=== PATIENT | male | born 1970 | race Caucasian/White ===

== ENCOUNTER → 2020-01-05 10:05 | Outpatient (CLI) | payer OTHER, SELFPAY ==
--- NOTE | ~2020-01-05 | XR_ITS ---
EXAMINATION: XR hand RT min 3V DATE: 01/05/2020 11:02 INDICATION: Right hand pain TECHNIQUE: Posteroanterior, oblique and lateral views of the right hand were obtained. COMPARISON: None. FINDINGS: Alignment is normal. No fracture. Mild polyarticular osteoarthritis with minimal joint space narrowin g and tiny marginal osteophytes at the first interphalangeal and fourth and fifth distal interphalang eal joints. No cortical erosions to suggest an inflammatory arthritis. Soft tissues are unremarkable. IMPRESSION: 1. Mild polyarticular osteoarthritis at a few of the interphalangeal joints. Reviewed, dictated and finalized at location A.
== END ==
PROVIDERS: PCP Family Medicine; Visit Provider Family Medicine
DX: M19.041 Primary osteoarthritis, right hand (principal)
CPT/HCPCS: 73130

== ENCOUNTER → 2020-10-01 12:34 | Outpatient (CLI) | payer OTHER, SELFPAY ==
--- NOTE | ~2020-10-01 | XR_ITS ---
XR lumbar spine 2-3V DATE: 10/01/2020 14:12 INDICATION: Back pain TECHNIQUE: Standing AP, lateral and coned lateral lumbosacral views COMPARISON: None FINDINGS: Status post anterior spinal fusion at L4-5, with apparent fusion across the L4-5 disc space . Mild anterior spurring at L2-3. The lumbar and lumbosacral interspaces otherwise appear well preserve d. No fracture or bone destruction is evident. The lumbar pedicles are intact. The sacroiliac joints appear normal. IMPRESSION: Status post anterior surgical fusion at L4-5 Reviewed, dictated and finalized at location A.
--- NOTE | ~2020-10-01 | XR_ITS ---
XR thoracic spine 3V DATE: 10/01/2020 14:12 INDICATION: Back pain TECHNIQUE: Standing AP, lateral and swimmer views COMPARISON: None FINDINGS: No fracture or dislocation is detected. The thoracic pedicles are intact. There is no wes monty soft tissue thickening. IMPRESSION: No significant abnormality Reviewed, dictated and finalized at location A. IMPRESSION: No significant abnormality
--- NOTE | ~2020-10-01 | XR_ITS ---
XR_CERV2-3V_CR DATE: 10/01/2020 14:12 INDICATION: Neck pain TECHNIQUE: Standing AP, lateral, open-mouth, odontoid views COMPARISON: None FINDINGS: There is reversal of cervical curvature. There is mild dextroscoliosis of the cervical spin e. C1 and C2 are normally aligned and the odontoid process is intact. No fracture or dislocation or lock ed facet or prevertebral soft tissue swelling. There is moderately prominent degenerative disc disease at C5-6 and moderately severe degenerative di sc disease at C6-7. IMPRESSION: Reversal cervical curvature and mild dextro scoliosis Moderate degenerative disc disease at C5-6 Moderately severe degenerative disc disease at C6-7 Reviewed, dictated and finalized at Location A. Reviewed, dictated and finalized at location A.
== END ==
PROVIDERS: Visit Provider Physician Assistant
DX: M50.322 Other cervical disc degeneration at C5-C6 level (principal); M50.323 Other cervical disc degeneration at C6-C7 level; Z98.1 Arthrodesis status
CPT/HCPCS: 72040; 72072; 72100

== ENCOUNTER 2020-10-02 06:26 | Emergency (ER) | payer OTHER, SELFPAY ==
[2020-10-02] VITALS (7 sets, daily range): BP systolic 127–163; BP diastolic 88–106; PULSE 60–78; RESP 16–21; TEMP 36.4; O2SAT 97–98
--- NOTE | ~2020-10-02 | XR_ITS ---
EXAMINATION: XR chest 2V DATE: 10/02/2020 07:01 INDICATION: Cardiac palpitations TECHNIQUE: frontal and lateral views of the chest were obtained. COMPARISON: Chest radiograph dated 02/19/19 FINDINGS: The lungs remain clear with no focal airspace opacities, pulmonary edema, pleural effusion or pneumot horax. The cardiomediastinal silhouette is normal. Visualized bones and soft tissues are unremarkable . IMPRESSION: 1. No acute cardiopulmonary disease. Reviewed, dictated and finalized at location A.
--- NOTE | 2020-10-02 06:34 | ECG_ITS ---
Measurements Intervals [place] Rate: 66 P: 55 ME: 157 QRS: 18 QRSD: 106 T: 51 QT: 395 QTc: 414 Interpretive Statements SINUS RHYTHM BASELINE ARTIFACT- I, II, III, AVR, AVL, AVF, V3-V6 NORMAL ECG Electronically Signed On 10-02-2020 6:43:25 CDT by Poli Valverde D.O.
[2020-10-02 07:02] LABS: Basophils Percent Auto 0.3 % (0.2-1.2); Eosinophils Absolute Auto 0.1 K/mm3 (0-0.3); Eosinophils Percent Auto 0.6 % (0-4.4); Hematocrit 43.4 % (42.0-52.0); Hemoglobin 14.5 g/dL (14.0-18.0); Immature Granulocyte Percent A 0.8 % (0-0.5); Lymphocytes Absolute Auto 2.22 K/mm3 (0.9-3.2); Lymphocytes Percent Auto 18.8 % (18.3-44.2); Mean Corpuscular HGB Conc 33.4 g/dl (32-36); Mean Corpuscular Hemoglobin 29.2 pg (26-34); Mean Corpuscular Volume 87.3 fl (80-100); Mean Platelet Volume 10.4 fl (7.4-10.4); Monocytes Absolute Auto 0.6 K/mm3 (0.1-0.6); Monocytes Percent Auto 5.3 % (2.6-8.5); Neutrophils Absolute Auto 8.8 K/mm3 (1.3-6.7); Neutrophils Percent Auto 74.2 % (45.5-73.1); Platelet Count Result 271 k/mm3 (150-375); Red Blood Count 4.97 M/mm3 (4.6-6.20); Red Cell Distribution Width 13.4 % (11.5-14.5); White Blood Count 11.8 K/mm3 (4.5-10.0)
[2020-10-02 07:11] LABS: Prothrombin Time 12.9 Seconds (11.1-14.7)
[2020-10-02 07:12] LABS: Partial Thromboplastin Time 24.7 SECONDS (22.3-36.8)
[2020-10-02 07:13] LABS: Anion Gap 10 mmol/L (8-16); Blood Urea Nitrogen 14 mg/dL (9-20); Calcium 9.1 mg/dL (8.4-10.2); Carbon Dioxide 22 mmol/L (22-30); Chloride 104 mmol/L (98-107); Estimated CRCL calculation 115 ml/min; Estimated Glomerular Filt Rate > 60; Glucose 115 mg/dL (65-110); Potassium 3.5 mmol/L (3.4-5.0); Sodium 136 mmol/L (137-145)
[2020-10-02 07:23] LABS: Troponin I < 0.012 ng/mL (0.000-0.034)
--- NOTE | 2020-10-02 07:38 | ED.ARRPALP ---
HPI - Arrhythmia/Palpitations General Chief Complaint: Arrhythmia/Palpitations Stated Complaint: palpitations Time Seen by Provider: 10/02/20 07:11 History of Present Illness HPI narrative: 50 yo male presents to the ED for heart palpitations. He reports that he was awoken from sleep by his heart pounding. He took his pulse and found that it was labile, ranging from 45-110. He also notes being warm and dizzy. This was also associated with a strange feeling in his chest. He has never had thee symptoms before. Since arrival in the ED he is feeling better, but says that he still feels off. No chest pain, SOB, syncope, fever. Related Data Home Medications Medication Instructions Recorded Confirmed omeprazole 20 mg PO DAILY 02/19/19 09/20/20 cetirizine 10 mg PO PRN 10/02/20 cyclobenzaprine 10 mg PO PRN 10/02/20 multivit with min-folic acid tablet PO 10/02/20 [Adult One Daily Multivitamin] Allergies Allergy/AdvReac Type Severity Reaction Status Date / Time codeine AdvReac Mild SLOW HEART Verified 10/02/20 06:44 RATE Review of Systems Review of Systems: All systems reviewed & are unremarkable except as noted in HPI and below Constitutional: Constitutional: Denies fever(s) and Denies weakness Eyes: Eyes: Reports no additional eye complaints ENT: Reports dizziness Cardiovascular: Cardiovascular: Denies chest pain Respiratory: Respiratory: Denies dyspnea Gastrointestinal: Gastrointestinal: Denies abdominal pain and Denies vomiting Genitourinary: Genitourinary: Reports no additional male genitourinary complaints Neurologic: Denies syncope and Denies weakness [facility] Past Medical History Medical History Cluster headache, chronic COVID-19 Oropeza syndrome Surgical History Surgical History Hx of tonsillectomy S/P laminectomy Family History Family History Father Hypertension Grandparent Hypertension Family history of malignant neoplasm Mother Hypertension Other No family history of cardiovascular disease Social History Social History Smoking status: Former smoker Tobacco type: cigarettes and e-cigarettes/vaping Alcohol intake: current Gender identity (if verbalized by the patient): Male Exam Const: General: healthy appearing, no acute distress and alert Orientation/consciousness: patient oriented x3 HENMT: Head: normal to inspection Neck: Neck: normal visual inspection and no lymphadenopathy Resp: Effort & Inspection: normal respiratory effort Auscultation: clear to auscultation bilaterally, no rales, no rhonchi and no wheezes Cardio: Jugular venous distension: no JVD Rate: regular rate Rhythm: regular rhythm Heart sounds: no murmurs GI: GI Palp: Yes Soft to palpation and No Tenderness to palpation present (GI) Skin: General skin exam: normal color Neuro: General: patient oriented x3, moves all extremities and CN's II-XI intact bilaterally Speech: normal speech Gait exam (Neuro): Normal gait present Extrem: General: no edema Psych: Appearance: well kempt Affect: Anxious affect present Course Vital Signs Vital signs: Vital Signs Temperature 36.4 C 10/02/20 06:38 Pulse Rate 70 10/02/20 06:38 Respiratory Rate 16 10/02/20 06:38 Blood Pressure 163/97 H 10/02/20 06:38 Pulse Oximetry 97 10/02/20 06:38 Temperature 36.4 C 10/02/20 06:38 Pulse Rate 60 10/02/20 10:38 Respiratory Rate 17 10/02/20 10:38 Blood Pressure 140/88 10/02/20 10:38 Pulse Oximetry 97 10/02/20 10:38 MDM - Arrhythmia/Palpitations Differential Diagnosis Differential diagnosis: Likely palpitations, anxiety, sinus tachycardia, artial fibrillation, artial flutter, ventricular premature beats, supraventricular tachycardia and other Medi
[2020-10-02 10:05] LABS: Troponin I < 0.012 ng/mL (0.000-0.034)
== END 2020-10-02 10:52 | disposition home or self-care (01) ==
PROVIDERS: Emergency Medicine; Emergency Provider Emergency Medicine; PCP Family Medicine
DX: R00.2 Palpitations (principal); Z86.16 Personal history of COVID-19; D69.41 Evans syndrome; Z87.891 Personal history of nicotine dependence
CPT/HCPCS: 36415; 71046; 80048; 84484; 85025; 85610; 85730; 93005; 99284

== ENCOUNTER 2021-06-07 01:07 | Emergency (ER) | payer OTHER, SELFPAY ==
[2021-06-07 01:16] VITALS: BP 160/87; PULSE 80; RESP 18; TEMP 36.2; O2SAT 98
--- NOTE | 2021-06-07 01:45 | ED.WOUNDLAC ---
HPI - Wound/Laceration General Chief Complaint: Wound/Laceration Stated Complaint: right side tongue pain Time Seen by Provider: 06/07/21 01:23 Source: patient Mode of arrival: ambulatory Limitations: no limitations History of Present Illness HPI narrative: Patient is a 51-year-old male who presents the ED with report of right posterior tongue pain. Patient reports he noticed discomfort in his right posterior tongue around 11 PM last night. He states he looked in the mirror and what he saw on his tongue horrified him, thus prompting his presentation to the ED. Patient denies any sore throat, fever, chills, chest pain, shortness of breath, nausea, vomiting, cough, congestion. He does mention he takes omeprazole 20 mg daily for his GERD and has had increased acid reflux symptoms lately. He is unsure if his reflux symptoms are related to his tongue pain tonight. Related Data Home Medications Medication Instructions Recorded Confirmed omeprazole 20 mg PO DAILY 02/19/19 10/10/20 cetirizine 10 mg PO PRN 10/02/20 10/10/20 cyclobenzaprine 10 mg PO PRN 10/02/20 10/10/20 multivit with min-folic acid tablet PO 10/02/20 10/10/20 [Adult One Daily Multivitamin] Allergies Allergy/AdvReac Type Severity Reaction Status Date / Time codeine AdvReac Mild SLOW HEART Verified 06/07/21 01:40 RATE Review of Systems Review of Systems: CONSTITUTIONAL: Denies fever, chills, or sweats. ENT: Reports right posterior tongue pain, acid reflux. Denies congestion, sore throat. CARDIOVASCULAR: Denies chest pain. RESPIRATORY: Denies dyspnea. GASTROINTESTINAL: Denies abdominal pain, nausea, vomiting. All systems reviewed & are unremarkable except as noted in HPI and below PMFSH Past Medical History Medical History (Updated 06/07/21 @ 02:42 by Sonja Hart PA-C) Cluster headache, chronic COVID-19 Oropeza syndrome GERD (gastroesophageal reflux disease) Surgical History Surgical History Hx of tonsillectomy S/P laminectomy Family History Family History Father Hypertension Grandparent Hypertension Family history of malignant neoplasm Mother Hypertension Other No family history of cardiovascular disease Social History Social History Tobacco type: cigarettes and e-cigarettes/vaping Alcohol intake: current Gender identity (if verbalized by the patient): Male Exam Narrative: GENERAL: Well appearing, well-nourished, non-toxic, in no acute distress. HEAD: Normocephalic, atraumatic. NOSE: Normal, no drainage. THROAT: Pharynx clear, no exudate. No erythema. MMs moist. Mildly enlarged papilla of posterior tongue. One papilla does appear slightly pedunculated in R posterior tongue. No signs of leukoplakia or thrush. NECK: Supple. No adenopathy, no masses. RESPIRATORY: Airway patent, respirations nonlabored. Clear to auscultation bilaterally, no rales, rhonchi, wheezing. CARDIOVASCULAR: Regular rate and rhythm without murmurs, rubs, or gallops. MUSCULOSKELETAL: Moves all extremities. SKIN: Warm, dry, normal color. No rashes. NEURO: A&O X3. Speech clear. Cranial nerves II-XII grossly intact. Steady gait. No ataxic movements. PSYCHIATRIC: Appropriate mood and affect. Normal interaction. Course Vital Signs Vital signs: Vital Signs Temperature 97.2 F L 06/07/21 01:16 Pulse Rate 80 06/07/21 01:16 Respiratory Rate 18 06/07/21 01:16 Blood Pressure 160/87 H 06/07/21 01:16 Pulse Oximetry 98 06/07/21 01:16 Temperature 97.2 F L 06/07/21 01:16 Pulse Rate 80 06/07/21 01:16 Respiratory Rate 18 06/07/21 01:16 Blood Pressure 160/87 H 06/07/21 01:16 Pulse Oximetry 98 06/07/21 01:16 MDM - Wound/Laceration MDM Narrative Medical decision making narrative: Patient presented to ED with report of right posterior tongue pain and aci
--- NOTE | 2021-06-07 02:01 | ECG_ITS ---
Measurements Intervals [place] Rate: 62 P: 22 IN: 140 QRS: 33 QRSD: 100 T: 37 QT: 398 QTc: 404 Interpretive Statements SINUS RHYTHM NORMAL ECG COMPARED TO ECG 10/02/2020 06:38:30 NO SIGNIFICANT CHANGES Electronically Signed On 06-07-2021 16:17:10 CDT by Michael Weeks M.D.
[2021-06-07] MEDS: BELLADONNA ALK/PHENOB ELIX 10 ML, MAG HYDROX/ALUMINUM HYD/SIMETH 30 ML, LIDOCAINE HCL 2... PO (02:25)
[2021-06-07 02:36] VITALS: RESP 18
== END 2021-06-07 02:37 | disposition home or self-care (01) ==
PROVIDERS: Emergency Provider Emergency Medicine; PCP Family Medicine
DX: K14.3 Hypertrophy of tongue papillae (principal); K21.9 Gastro-esophageal reflux disease without esophagitis; Z86.16 Personal history of COVID-19; D69.41 Evans syndrome; F17.210 Nicotine dependence, cigarettes, uncomplicated; F17.290 Nicotine dependence, other tobacco product, uncomplicated
CPT/HCPCS: 93005; 99283; A9270

== ENCOUNTER → 2022-01-27 14:33 | Outpatient (CLI) | payer OTHER, SELFPAY ==
--- NOTE | ~2022-01-27 | CT_ITS ---
EXAMINATION: CT UE LT wo con DATE: 01/27/2022 15:13 INDICATION: Left cubital tunnel syndrome. Assess for lesion of the ulnar nerve at the left elbow. TECHNIQUE: High resolution computed tomography (CT) of the left elbow was performed without intraveno us contrast. Additional sagittal and coronal reconstructions were performed. Automated exposure contr ol and iterative reconstruction technique were employed. The dose-length product was 117.84 mGy-cm. COMPARISON: None FINDINGS: Bone alignment is normal. No fracture. Mild osteoarthritis at the left elbow with mild nonuniform roscoe nt space narrowing and tiny marginal osteophytes at the ulnotrochlear and proximal radioulnar articul ations. Small likely degenerative loose body at the posterior recess of the joint space at the olecra non fossa. No left elbow joint effusion. There is a normal course and caliber of the ulnar nerve at t he cubital tunnel as well as both proximally and distally. The cubital tunnel appears unremarkable wi th no and 20 separate trochlear is muscle. There is small amount of fat surrounding the nerve through out its course with no evident impinging osteophytes, masses or fluid collections. There is a nonspec ific small region of focal subtle airspace edema posteriorly at the slightly proximal to the proximal tip of the olecranon. No evident fatty muscular atrophy of the visualized muscles in the distal uppe r arm or proximal forearm. IMPRESSION: 1. Normal course and caliber of the ulnar nerve with no evident impinging osteophytes, masses or flui d collections. Reviewed, dictated and finalized at location B. ROLLER IMPRESSION: 1. Normal course and caliber of the ulnar nerve with no evident impinging osteo phytes, masses or fluid collections.
== END ==
PROVIDERS: PCP Emergency Medicine; Visit Provider Emergency Medicine
DX: R22.32 Localized swelling, mass and lump, left upper limb (principal)
CPT/HCPCS: 73200

== ENCOUNTER 2022-03-24 10:58 | Day surgery (SDC) | payer OTHER, SELFPAY ==
[2022-02-25 09:58] VITALS: BMI 37.4
[2022-03-04 09:49] VITALS: BMI 37.5
--- NOTE | 2022-03-21 08:42 | P.PNAN_ITS ---
Anes - Initial Pre Proc Eval Procedure: Operation Date: 03/24/22 13:00 Proposed Procedures p Screening Colonoscopy - Kwadwo Del Castillo MD Date/Time: 03/21/22 08:42 Surgeon: Kwadwo Del Castillo MD Pre Op Diagnosis: family history of colon polyp Patient Data Age: 51 Gender: M Height: 1.73 m Weight: 112 kg Allergies Allergy/AdvReac Type Severity Reaction Status Date / Time codeine AdvReac Mild SLOW HEART Verified 03/24/22 12:06 RATE Home Medications Medication Instructions Recorded Confirmed Type omeprazole 20 mg tablet,delayed 20 mg PO DAILY 02/19/19 03/04/22 History release multivitamin with minerals-folic 1 tablet PO DAILY 10/02/20 03/04/22 History acid 0.4 mg tablet (Adult One Daily Multivitamin) topiramate 100 mg tablet See Rx Instructions .Route 09/09/21 03/04/22 Rx .COMPLEX #180 tabs zolmitriptan 5 mg nasal spray 1 spray intranasal Q2H PRN 01/14/22 03/04/22 Rx headache #6 ea sodium,potassium,mag sulfates 17.5 See Rx Instructions PO .COMPLEX 02/25/22 03/04/22 Rx gram-3.13 gram-1.6 gram oral soln #354 mL (Suprep Bowel Prep Kit) lisinopril 20 mg tablet 20 mg PO DAILY #90 tabs 03/13/22 03/24/22 Rx Patient hx anesthesia problems: none Family hx anesthesia problems: none Results Review: All pre-operative results and documents have been reviewed as part of the pre- operative evaluation. [facility] Past Medical History Medical History (Updated 03/24/22 @ 12:12 by Kwadwo Del Castillo MD) Cluster headache, chronic COVID-19 Oropeza syndrome GERD (gastroesophageal reflux disease) Hypertension Surgical History Surgical History Hx of tonsillectomy S/P laminectomy Family History Family History Father Hypertension Grandparent Hypertension Family history of malignant neoplasm Mother Hypertension Other No family history of cardiovascular disease Social History Social History Smoking status: Never smoker Tobacco type: cigarettes and e-cigarettes/vaping Alcohol intake: never Substance use: never Substance use type: does not use Living arrangements: alone Gender identity (if verbalized by the patient): Male Spiritual care concerns: No Anes - Eval Final PreProcedure Day of Procedure 03/21/22 08:42 Patient weight: obese Heart: regular rate and rhythm Lungs: clear to auscultation Airway: Mallampati scale class II Neurological: alert and oriented Last oral intake: >/= 8 hours ASA classification: III Emergent: no Anesthetic plan: proceed Anesthesia type and monitoring: general GIVS and standard monitoring Results Review: All pre-operative results and documents have been reviewed as part of the pre- operative evaluation. Informed Consent: The patient's anesthetic plan and its attendant risks and benefits were discussed with the patient/family/POA. Questions were solicited and answers provided to the satisfaction of the patient/family/POA.
[2022-03-24 12:10] VITALS: BP 108/79; PULSE 63; RESP 20; TEMP 36.9; O2SAT 99
--- NOTE | 2022-03-24 12:11 | PM.HPGS ---
History of Present Illness History of Present Illness Consent: Risks, benefits, and alternatives have been discussed and questions answered. Patient agrees to proceed with procedure. Chief complaint: family history of colon polyp Narrative: Jarocho Velarde is a 52 year old male Presents for screening colonoscopy. He has never had a colonoscopy before his father had colon polyps however. Patient states that his current weight appetite bowel movements are normal. He presents today for screening colonoscopy. Review of Systems Review of Systems: Review of systems noncontributory. [facility] Past Medical History Medical History (Updated 03/24/22 @ 12:12 by Kwadwo Del Castillo MD) Cluster headache, chronic COVID-19 Oropeza syndrome GERD (gastroesophageal reflux disease) Hypertension Surgical History Surgical History Hx of tonsillectomy S/P laminectomy Family History Family History Father Hypertension Grandparent Hypertension Family history of malignant neoplasm Mother Hypertension Other No family history of cardiovascular disease Social History Social History Smoking status: Never smoker Tobacco type: cigarettes and e-cigarettes/vaping Alcohol intake: never Substance use: never Substance use type: does not use Living arrangements: alone Gender identity (if verbalized by the patient): Male Spiritual care concerns: No Meds Home Medications and Allergies Home Medications Medication Instructions Recorded Confirmed Type omeprazole 20 mg tablet,delayed 20 mg PO DAILY 02/19/19 03/04/22 History release multivitamin with minerals-folic 1 tablet PO DAILY 10/02/20 03/04/22 History acid 0.4 mg tablet (Adult One Daily Multivitamin) topiramate 100 mg tablet See Rx Instructions .Route 09/09/21 03/04/22 Rx .COMPLEX #180 tabs zolmitriptan 5 mg nasal spray 1 spray intranasal Q2H PRN 01/14/22 03/04/22 Rx headache #6 ea sodium,potassium,mag sulfates 17.5 See Rx Instructions PO .COMPLEX 02/25/22 03/04/22 Rx gram-3.13 gram-1.6 gram oral soln #354 mL (Suprep Bowel Prep Kit) lisinopril 20 mg tablet 20 mg PO DAILY #90 tabs 03/13/22 03/24/22 Rx Allergies Allergy/AdvReac Type Severity Reaction Status Date / Time codeine AdvReac Mild SLOW HEART Verified 03/24/22 12:06 RATE Exam Narrative: Physical exam reveals patient to be alert. Vital signs stable. HEENT exam is unremarkable. Patient is anicteric. Lungs are clear to auscultation and percussion. Heart is without murmur or extra sounds. Abdomen bowel sounds are present soft nontender with no organomegaly. Digital external rectal exam is normal. Assessment and Plan Assessment and plan (1) Family history of colonic polyps: Code(s): Z83.71 - Family history of colonic polyps Status: Acute Assessment and Plan: Patient has a family history of colon polyps in his father. Screening colonoscopy to be performed today.
[2022-03-24] MEDS: LACTATED RINGERS 1,000 ML 150 ML IV CONT (12:25)
[2022-03-24] MEDS: SIMETHICONE ORAL SUSPENSION 20 MG/0.3 ML 30 ML BOTTLE 0.6 ML IRRIGATION (12:35)
[2022-03-24 12:42] VITALS: BP 92/62; PULSE 68; RESP 18; O2SAT 96
[2022-03-24 12:52] VITALS: BP 95/62; PULSE 80; RESP 18; O2SAT 99
[2022-03-24 13:02] VITALS: BP 106/73; PULSE 70; RESP 18; O2SAT 98
--- NOTE | 2022-03-24 13:02 | WPDANESPN ---
Anes - Prog Note Post-Op Date/Time: 03/24/22 13:02 Cardiovascular status: normal Respiratory status: normal Airway patency: baseline Mental status: baseline Post-Op hydration status: normal Vital Signs: Last Vital Signs Temp 36.9 C 03/24/22 12:10 Pulse 80 03/24/22 12:52 Resp 18 03/24/22 12:52 BP 95/62 L 03/24/22 12:52 Pulse Ox 99 03/24/22 12:52 O2 Del Method Room Air 03/24/22 12:52 Pain Score (VAS): 0 Post-procedural complaints: none Patient Feedback: Patient satisfied with anesthetic care. Other Findings: Patient vital signs back to baseline. Patient denies nausea and vomiting. Patient's pain under control. Patient OK for discharge.
== END 2022-03-24 13:26 | disposition home or self-care (01) ==
PROVIDERS: PCP Emergency Medicine; Visit Provider Internal Medicine Gastroenterology
PROC: 0DJD8ZZ Inspection of Lower Intestinal Tract, Via Natural or Artificial Opening Endoscopic (ICD-10-PCS; CPT 45378; principal; 2022-03-24 13:00)
DX: Z83.71 Family history of colonic polyps (principal)
CPT/HCPCS: 45378

== ENCOUNTER 2022-07-20 04:37 | Emergency (ER) | payer OTHER, SELFPAY ==
[2022-07-20 04:50] VITALS: BP 155/91; PULSE 82; RESP 18; TEMP 36.6; O2SAT 99
[2022-07-20] MEDS: DOXYCYCLINE HYCLATE 100 MG TABLET PO (05:37)
--- NOTE | 2022-07-20 05:51 | ED.GENADULT ---
HPI - General Adult General Chief complaint: Eye Problems Stated complaint: left eye swellin/redness Time Seen by Provider: 07/20/22 05:17 History of Present Illness HPI narrative: Patient 52-year-old gentleman who presents the emergency department with chief complaint of left eyelid swelling. The patient reports recently has been treated for a ear infection with last course of azithromycin. Patient reports that today he noticed that his eyelid started getting itchy and reported that it has become swollen. The patient denies change in vision denies conjunctivitis denies purulent drainage from the eye. Related Data Home Medications Medication Instructions Recorded Confirmed omeprazole 20 mg tablet,delayed 20 mg PO DAILY 02/19/19 07/14/22 release multivitamin with minerals-folic 1 tablet PO DAILY 10/02/20 07/14/22 acid 0.4 mg tablet (Adult One Daily Multivitamin) Allergies Allergy/AdvReac Type Severity Reaction Status Date / Time codeine AdvReac Mild SLOW HEART Verified 07/20/22 05:14 RATE Review of Systems Review of Systems: A 10 system review of systems was completed on the patient and is negative except for what is stated in the HPI. Nursing and ancillary documentation was reviewed. [facility] Past Medical History Medical History Cluster headache, chronic COVID-19 Orpoeza syndrome GERD (gastroesophageal reflux disease) Hypertension Surgical History Surgical History Hx of tonsillectomy S/P laminectomy Family History Family History Father Hypertension Grandparent Hypertension Family history of malignant neoplasm Mother Hypertension Other No family history of cardiovascular disease Social History Social History Smoking status: Former smoker Tobacco type: cigarettes and e-cigarettes/vaping Alcohol intake: never Substance use: never Substance use type: does not use Living arrangements: alone Gender identity (if verbalized by the patient): Male Spiritual care concerns: No Exam Narrative: GENERAL: Well-appearing, well-nourished, and in no acute distress. HEAD: Normocephalic, atraumatic. EYES: PERRLA and EOMI. no conjunctivitis, there is erythema and swelling of the left upper eyelid. There is no fluctuance there is no appreciable abscess. ENT: Nares clear, no rhinorrhea or epistaxis. Mucous membranes moist. NECK: Supple. CHEST: Clear to auscultation. No respiratory distress. HEART: Regular rate and rhythm. No murmur heard. Normal peripheral pulses. ABDOMEN: Soft, nontender, nondistended, normal active bowel sounds. EXTREMITIES: Normal range of motion. No edema. SKIN: Warm, dry, no rash. NEURO: No focal deficits. Alert and oriented x3. PSYCH: Normal mood and affect. Course Vital Signs Vital signs: Vital Signs Temperature 36.6 C 07/20/22 04:50 Pulse Rate 82 07/20/22 04:50 Respiratory Rate 18 07/20/22 04:50 Blood Pressure 155/91 H 07/20/22 04:50 Pulse Oximetry 99 07/20/22 04:50 Oxygen Delivery Room Air 07/20/22 04:50 Temperature 36.6 C 07/20/22 04:50 Pulse Rate 82 07/20/22 04:50 Respiratory Rate 18 07/20/22 04:50 Blood Pressure 155/91 H 07/20/22 04:50 Pulse Oximetry 99 07/20/22 04:50 Oxygen Delivery Room Air 07/20/22 04:50 Medical Decision Making [facility] Narrative Medical decision making narrative: Differential diagnosis includes cellulitis, localized allergic reaction, blepharitis. Patient will be started on doxycycline to cover for possible infectious source for blepharitis the patient was instructed to warm compresses to the eye Vital Signs Vital Signs: Vital Signs Temperature 36.6 C 07/20/22 04:50 Pulse Rate 82 07/20/22 04:50 Respiratory R
== END 2022-07-20 06:07 | disposition home or self-care (01) ==
PROVIDERS: Emergency Provider Emergency Medicine; PCP Emergency Medicine
DX: H01.004 Unspecified blepharitis left upper eyelid (principal); I10 Essential (primary) hypertension; K21.9 Gastro-esophageal reflux disease without esophagitis; Z86.16 Personal history of COVID-19; Z87.891 Personal history of nicotine dependence
CPT/HCPCS: 99283; A9270

== ENCOUNTER 2022-09-15 19:00 | Emergency (ER) | payer OTHER, SELFPAY ==
--- NOTE | ~2022-09-15 | CT_ITS ---
EXAMINATION: CT abdomen pelvis w con INDICATION: Left-sided abdominal pain TECHNIQUE: Computed tomographic images of the abdomen and pelvis were obtained after the administrati on of 100 cc of Omnipaque 350 intravenous contrast. The dose-length product (DLP) was 1059.10 mGy-cm. Automated exposure control and iterative reconstruction technique were employed. COMPARISON: 11/03/2010 FINDINGS: Minimal dependent atelectasis is present in the lung bases. The heart size is normal. The l iver, spleen, pancreas, gallbladder, and adrenal glands are normal. Cysts of the kidneys measure up t o 3.4 cm on the left. No pathologically enlarged abdominal or pelvic lymph nodes are identified. The distal duodenum is upper limits of normal in size. There is no free intraperitoneal gas. There are ch anges of anterior fusion at L4-5. An umbilical hernia containing fat is noted. IMPRESSION: 1. No CT correlate for the patient's symptoms. Reviewed, dictated and finalized at location A.
[2022-09-15 19:33] VITALS: BP 122/74; PULSE 75; RESP 14; TEMP 36.6; O2SAT 99
[2022-09-15 19:47] LABS: Basophils Absolute Auto 0.1 K/mm3 (0.0-0.1); Basophils Percent Auto 0.5 % (0.2-1.2); Eosinophils Percent Auto 0.3 % (0-4.4); Hematocrit 42.7 % (42.0-52.0); Hemoglobin 14.7 g/dL (14.0-18.0); Immature Granulocyte Absolute 0.04 K/mm3 (0.00-0.031); Immature Granulocyte Percent A 0.4 % (0-0.5); Lymphocytes Absolute Auto 1.38 K/mm3 (0.9-3.2); Lymphocytes Percent Auto 14.7 % (18.3-44.2); Mean Corpuscular HGB Conc 34.4 g/dl (32-36); Mean Corpuscular Hemoglobin 30.3 pg (26-34); Mean Platelet Volume 10.3 fl (7.4-10.4); Monocytes Absolute Auto 0.7 K/mm3 (0.1-0.6); Monocytes Percent Auto 7.1 % (2.6-8.5); Neutrophils Absolute Auto 7.2 K/mm3 (1.3-6.7); Platelet Count Result 292 k/mm3 (150-375); Red Blood Count 4.85 M/mm3 (4.6-6.20); Red Cell Distribution Width 13.1 % (11.5-14.5); White Blood Count 9.4 K/mm3 (4.5-10.0)
[2022-09-15 19:57] LABS: Alanine Aminotransferase 21 U/L (6-50); Albumin Level 4.5 g/dL (3.5-5.1); Alkaline Phosphatase 78 U/L (38-126); Anion Gap 9 mmol/L (8-16); Aspartate Amino Transferase 29 U/L (17-59); Bilirubin,Total 0.8 mg/dL (0.2-1.3); Blood Urea Nitrogen 14 mg/dL (9-20); Calcium 9.1 mg/dL (8.4-10.2); Carbon Dioxide 24 mmol/L (22-30); Chloride 106 mmol/L (98-107); Estimated CRCL calculation 89 ml/min; Estimated Glomerular Filt Rate > 60; Glucose 85 mg/dL (65-110); Lipase 107 U/L (23-300); Potassium 3.9 mmol/L (3.4-5.0); Sodium 139 mmol/L (137-145)
[2022-09-15 22:13] LABS: Appearance Urine Clear (Clear); Bilirubin Urine Negative (Negative); Blood Urine Negative (Negative); Color Urine Yellow (Yellow); Glucose Urine UA Negative (Negative); Ketones Urine 1+ mg/dL (Negative); Leukocyte Esterase Ur Negative LEU/UL (Negative); Nitrate Urine Negative (Negative); Protein Urine Negative (Negative); Specific Grav Ur 1.006 (1.001-1.035); Urobilinogen Urine 0.2 mg/dL (<2.0); pH Urine 5.5 (5.0-9.0)
[2022-09-15 22:17] LABS: Add Urine Microscopic? NO
--- NOTE | 2022-09-15 22:52 | ED.ABDPAIN ---
HPI - Abdominal Pain General Chief Complaint: Abdominal Pain <MILADY Jimenez Last Filed: 09/16/22 01:00> Stated Complaint: abd pain/n/near syncopal episode <MILADY Jimenez Last Filed: 09/16/22 01:00> Time Seen by Provider: 09/15/22 22:21 <MILADY Jimenez Last Filed: 09/16/22 01:00> Source: patient <MILADY Jimenez Last Filed: 09/16/22 01:00> Mode of arrival: ambulatory <MILADY Jimenez Last Filed: 09/16/22 01:00> Limitations: no limitations <MILADY Jimenez Last Filed: 09/16/22 01:00> History of Present Illness HPI narrative: This is a 52-year-old male that presents to the emergency department for left-sided abdominal pain ongoing over the last several days. Associated with nausea. Reports he has not had a bowel movement in several days. He tried to take some Maalox for the pain with little relief. Reports bloating and fullness. Denies fever, vomiting, or dysuria. <MILADY Jimenez Last Filed: 09/16/22 01:00> Related Data Home Medications: Home Medications Medication Instructions Recorded Confirmed omeprazole 20 mg tablet,delayed 20 mg PO DAILY 02/19/19 07/14/22 release multivitamin with minerals-folic 1 tablet PO DAILY 10/02/20 07/14/22 acid 0.4 mg tablet (Adult One Daily Multivitamin) <MILADY Jimenez Last Filed: 09/16/22 01:00> Allergies/Adverse Reactions: Allergies Allergy/AdvReac Type Severity Reaction Status Date / Time codeine AdvReac Mild SLOW HEART Verified 07/20/22 05:14 RATE <MILADY Jimenez Last Filed: 09/16/22 01:00> Review of Systems Review of Systems: CONSTITUTIONAL: Denies fever GASTROINTESTINAL: Reports abdominal pain, nausea. Denies vomiting, or diarrhea. GENITOURINARY: Denies dysuria or hematuria. 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 GERD (gastroesophageal reflux disease) Hypertension <MILADY Jimenez Last Filed: 09/16/22 01:00> Surgical History Surgical History: Surgical History Hx of tonsillectomy S/P laminectomy <MILADY Jimenez Last Filed: 09/16/22 01:00> Family History Family History: Family History Father Hypertension Grandparent Hypertension Family history of malignant neoplasm Mother Hypertension Other No family history of cardiovascular disease <Lashon Wilcox PA-C - Last Filed: 09/16/22 01:00> Social History Social History: Social History Smoking status: Former smoker Tobacco type: cigarettes and e-cigarettes/vaping Alcohol intake: never Substance use: never Substance use type: does not use Living arrangements: alone Gender identity (if verbalized by the patient): Male Spiritual care concerns: No <MILADY Jimenez Last Filed: 09/16/22 01:00> Exam Narrative: GENERAL: Well-appearing, well-nourished, and in no acute distress. HEAD: Normocephalic, atraumatic. EYES: EOMI. CHEST: Clear to auscultation. No respiratory distress. No wheezes rales or rhonchi HEART: Regular rate and rhythm. No murmur heard. Normal peripheral pulses. ABDOMEN: Soft, nondistended, normal active bowel sounds. Mild tenderness to palpation throughout the left side of the abdomen, without guarding EXTREMITIES: Normal range of motion. No edema. SKIN: Warm, dry, no rash. NEURO: No focal deficits. Alert and oriented x3. PSYCH: Normal mood and affect <Lashon Wilcox PA-C - Last
[2022-09-15 23:04] VITALS: BP 119/80; PULSE 57; RESP 20; TEMP 36.6; O2SAT 99
[2022-09-16 00:32] VITALS: BP 126/88; PULSE 69; RESP 18; O2SAT 100
[2022-09-16 01:08] VITALS: BP 122/75; PULSE 68; RESP 19; TEMP 36.4; O2SAT 100
== END 2022-09-16 01:09 | disposition home or self-care (01) ==
PROVIDERS: Emergency Medicine; Emergency Provider Physician Assistant; PCP Emergency Medicine
DX: K52.9 Noninfective gastroenteritis and colitis, unspecified (principal); I10 Essential (primary) hypertension; D69.41 Evans syndrome; G44.029 Chronic cluster headache, not intractable; K21.9 Gastro-esophageal reflux disease without esophagitis; Z87.891 Personal history of nicotine dependence; Z86.16 Personal history of COVID-19
CPT/HCPCS: 36415; 74177; 80053; 81003; 83690; 85025; 99284; Q9967

== ENCOUNTER 2023-05-25 12:33 | Outpatient (CLI) | payer OTHER, SELFPAY ==
--- NOTE | 2023-05-25 13:00 | ECG_ITS ---
Measurements Intervals [place] Rate: 59 P: 31 [place]: 137 QRS: 34 QRSD: 104 T: 40 QT: 397 QTc: 394 Interpretive Statements SINUS BRADYCARDIA BORDERLINE ECG COMPARED TO ECG 06/07/2021 02:19:14 SINUS BRADYCARDIA NOW PRESENT Electronically Signed On 05-25-2023 13:39:53 CDT by Poli Valverde D.O.
== END 2023-05-25 12:34 | disposition home or self-care (01) ==
PROVIDERS: PCP Emergency Medicine; Visit Provider Urology
DX: Z01.818 Encounter for other preprocedural examination (principal); I10 Essential (primary) hypertension; R93.1 Abnormal findings on diagnostic imaging of heart and coronary circulation
CPT/HCPCS: 93005

== ENCOUNTER 2023-05-27 02:15 | Day surgery (SDC) | payer OTHER, SELFPAY ==
[2023-05-25 09:48] VITALS: BMI 35.7
--- NOTE | 2023-05-25 09:54 | PC.NURSE ---
Report to the Outpatient Waiting Room, entrance under the green pavilion located off [facility], at time 11:30 on date 05/27/23. Planned Procedure Time: 1:30. Time changes happen often and if your time is changed the preop area will call you the afternoon before. - You and your visitor will be asked to self-screen and do not enter if you have any COVID symptoms. - A mask is optional within the hospital at this time. Patients may have clear liquids (water, carbonated beverages, clear teas, apple juice) until 3 hours prior to surgery (10:30) with a maximum of 20 ounces. - No food from midnight until time of surgery Take the following medications with a SIP of water the morning of surgery: TOPIRAMATE DO NOT STOP ANY OF YOUR OTHER PRESCRIPTION MEDICATIONS PRIOR TO SURGERY ?EXCEPT THE FOLLOWING Medications to discontinue per physician: N/A Date to take last dose: N/A Please no make-up, nail puerto rican, hairspray, perfume, deodorant, or body powder the day of surgery. No jewelry (including any body piercings) or valuables the day of surgery, leave them at home. Please take a shower or bath the night before, or the morning of, surgery with an antibacterial soap. Wear comfortable, loose fitting clothing. - Jewelry must be removed prior to entering the operating room. Rings and piercings that are not removed may be cut off. - The hospital will not accept responsibility for valuables. - Please leave all valuables, including medications, at home the day of surgery. If you are going home after surgery, a licensed local company truck driver must drive you home. - NO public transportation without another adult if you receive anesthesia. - We recommend that an adult stay with you for 24 hours following discharge. - We also recommend that you do not drive, make important decision, drink alcoholic beverages, or take any drugs that were not prescribed by your health care provider for at least 24 hours after your discharge time. Follow any additional instructions given to you from your surgeon. If you or anyone in your household have experienced Covid symptoms in the past week, please notify your surgeon or the nurse liaison at the phone number below for possible testing. Telephone instructions given to PT - [employer] and asked if any additional questions and then verbalized understanding. Patient advised to call surgeon office or pre surgery nurse liaison [phone] if any additional questions.
--- NOTE | 2023-05-27 08:58 | P.PNAN_ITS ---
Anes - Initial Pre Proc Eval Procedure: Operation Date: 05/27/23 13:30 Proposed Procedures p CO2 Laser Penile Condyloma - Gregorio Tamayo MD Date/Time: 05/27/23 08:58 Surgeon: Gregorio Tamayo MD Pre Op Diagnosis: penile condyloma Patient Data Age: 53 Gender: M Height: 1.73 m Weight: 106.6 kg Allergies Allergy/AdvReac Type Severity Reaction Status Date / Time codeine AdvReac Mild SLOW HEART Verified 05/25/23 09:47 RATE Home Medications Medication Instructions Recorded Confirmed Type omeprazole 20 mg tablet,delayed 20 mg PO DAILY 02/19/19 05/25/23 History release topiramate 100 mg tablet See Rx Instructions .Route 08/28/22 05/25/23 Rx .COMPLEX #90 tabs zolmitriptan 5 mg nasal spray 1 spray intranasal Q2H PRN 12/19/22 05/25/23 Rx headache #6 ea lisinopril 20 mg tablet 20 mg PO DAILY #90 tabs 05/25/23 05/25/23 Rx Results Review: All pre-operative results and documents have been reviewed as part of the pre- operative evaluation. 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 GERD (gastroesophageal reflux disease) Hypertension Migraine Surgical History Surgical History Hx of tonsillectomy S/P laminectomy Family History Family History Father Hypertension Grandparent Hypertension Family history of malignant neoplasm Mother Hypertension Other No family history of cardiovascular disease Social History Social History Social History: Caffeine-coffee Smoking packs per day: 1 Smoking cigarettes per day: 20.0 Years smoked: 23 Smoking pack-years: 23.00 Smoking status: Former smoker Tobacco type: cigarettes Smoking end date: 03/16/11 Alcohol intake: never Substance use: current Substance use type: marijuana Lack of Transportation: No Current Housing: I Have Housing Concerned About Future Housing: No Difficulty Paying Gas/Electric Bills: No Difficulty Paying for Meds: No Currently Unemployed: No Education: Bachelor's Degree Difficulty w/ Childcare or Family Care: No Living arrangements: alone Gender identity (if verbalized by the patient): Male Spiritual care concerns: No Anes - Eval Final PreProcedure Day of Procedure 05/27/23 08:58 Patient weight: obese Heart: regular rate and rhythm Lungs: clear to auscultation Airway: Mallampati scale class II Neurological: alert and oriented Last oral intake: >/= 8 hours ASA classification: III Emergent: no Anesthetic plan: proceed Anesthesia type and monitoring: general LMA and standard monitoring Results Review: All pre-operative results and documents have been reviewed as part of the pre- operative evaluation. Informed Consent: The patient's anesthetic plan and its attendant risks and benefits were discussed with the patient/family/POA. Questions were solicited and answers provided to the satisfaction of the patient/family/POA.
--- NOTE | 2023-05-27 10:56 | SUR.PREOP ---
patient arrived with no ride home request to be a local call to Dr Tamayo who approves, Dr Maria aware
--- NOTE | 2023-05-27 11:20 | WPDHPUPDATE1 ---
History and Physical Update Update Date/Time: 05/27/23 11:20 Plan CO2 laser to suprapubic lesion and any others found while in OR -- plan local anesthesia History and Physical has been reviewed, including an updated exam of the patient. There are NO changes in the patient's condition. Risks, benefits, and alternatives have been discussed and questions answered. Patient agrees to proceed with procedure.
[2023-05-27 11:46] VITALS: BP 138/70; PULSE 70; RESP 14; TEMP 36.3; O2SAT 98
[2023-05-27 13:37] VITALS: BP 148/77; PULSE 50; RESP 14; O2SAT 99
[2023-05-27 13:50] VITALS: BP 157/92; PULSE 52; RESP 14; O2SAT 99
[2023-05-27 14:00] VITALS: BP 147/86; PULSE 55; RESP 14; O2SAT 100
--- NOTE | 2023-05-27 14:01 | W.PM.PROC2 ---
Procedure Note - Detailed Date of Procedure 05/27/23 Pre-op Diagnosis penile condyloma Post-op Diagnosis Same Procedure Performed CO2 laser to penile, scrotal, superior thigh condyloma Surgeon Gregorio Tamayo MD Anesthesia Local Findings Five lesions measuring 2 to 20 mm destroyed with CO2 Description of Procedure Informed consent is obtained. Patient taken the operating. He has a known history of condyloma. Marcaine was placed under lesions that were identified with close inspection --proximal penile shaft 20mm, proximal penile shaft 15mm, scrotum 5mm, right superior thigh 15mm, left superior thigh 5mm. CO2 laser was used to destroy these lesions. We used initial settings of 5 w, followed by 2 w for hemostasis. There was a good cosmetic result. Patient tolerated procedure well. Antibiotic ointment was applied. Patient taken to PACU in stable condition Pathology None sent Complications No immediate complications Condition Stable
[2023-05-27 14:05] VITALS: BP 147/76; PULSE 49; RESP 14; O2SAT 100
[2023-05-27] MEDS: BUPivacaine HCL 0.5% 10 ML AMP INFILTRATE (14:12)
== END 2023-05-27 14:17 | disposition home or self-care (01) ==
PROVIDERS: PCP Emergency Medicine; Visit Provider Urology
PROC: (CPT 54057; principal; 2023-05-27 13:30)
DX: A63.0 Anogenital (venereal) warts (principal); I10 Essential (primary) hypertension; K21.9 Gastro-esophageal reflux disease without esophagitis; D69.41 Evans syndrome; Z87.891 Personal history of nicotine dependence; F12.90 Cannabis use, unspecified, uncomplicated; E66.9 Obesity, unspecified; Z68.35 Body mass index [BMI] 35.0-35.9, adult
CPT/HCPCS: 54057; 17110; 93005; A9270

== ENCOUNTER 2023-06-09 14:42 | Outpatient (CLI) | payer OTHER, SELFPAY ==
--- NOTE | ~2023-06-09 | XR_ITS ---
EXAMINATION: XR abdomen obstructive series DATE: 06/09/2023 14:58 INDICATION: Constipation TECHNIQUE: Upright and supine views of the abdomen were obtained. COMPARISON: None. FINDINGS: The bowel gas pattern is nonspecific. No dilated loops of bowel are identified. There is no free intraperitoneal gas. The visualized lung bases are clear. Colonic stool burden appears normal. There are lumbar surgical changes at L4-5. IMPRESSION: 1. Nonobstructive bowel gas pattern. Reviewed, dictated and finalized at location F.
== END 2023-06-09 14:43 ==
PROVIDERS: PCP Emergency Medicine; Visit Provider Emergency Medicine
DX: K59.00 Constipation, unspecified (principal)
CPT/HCPCS: 74019

== ENCOUNTER 2024-01-01 12:24 | Outpatient (CLI) | payer OTHER, SELFPAY ==
--- NOTE | ~2024-01-01 | CT_ITS ---
CT of the Abdomen and Pelvis: Indication: Abdominal pain Technique: 2.5 mm axial scans were obtained through the abdomen and pelvis following intravenous adm inistration of 100 cc of Omnipaque 350. Dose reduction technique was used on this scan by utilizing a utomated exposure control and iterative reconstruction technique. The dose-length product (DLP) was 1 084.44 mGy-cm. COMPARISON: 09/15/2022 Findings: Scans through the lung bases demonstrated 4 mm right lower lobe pulmonary nodule. There is a 4 mm left lower lobe pulmonary nodule (axial image 28). These are stable from prior exam. The liver, spleen, pancreas, gallbladder, adrenals and kidneys are within normal limits. No evidence of aortic aneurysm. No lymphadenopathy. No bowel obstruction or bowel wall thickening. There is no evidence to suggest acute appendicitis. Images through the pelvis were performed. Urinary bladder unremarkable. No pelvic mass seen. No ascit es. Impression: No significant abnormalities seen. Reviewed, dictated and finalized at location . Impression: No significant abnormalities seen.
[2024-01-01 12:58] LABS: Estimated Glomerular Filt Rate > 60
[2024-01-01 13:02] LABS: Basophils Absolute Auto 0.1 K/mm3 (0.0-0.1); Basophils Percent Auto 0.7 % (0.2-1.2); Eosinophils Absolute Auto 0.1 K/mm3 (0-0.3); Eosinophils Percent Auto 0.8 % (0-4.4); Hematocrit 43.6 % (42.0-52.0); Hemoglobin 14.8 g/dL (14.0-18.0); Immature Granulocyte Absolute 0.01 K/mm3 (0.00-0.031); Immature Granulocyte Percent A 0.1 % (0-0.5); Lymphocytes Absolute Auto 1.18 K/mm3 (0.9-3.2); Lymphocytes Percent Auto 15.6 % (18.3-44.2); Mean Corpuscular HGB Conc 33.9 g/dl (32-36); Mean Corpuscular Hemoglobin 30.3 pg (26-34); Mean Corpuscular Volume 89.3 fl (80-100); Mean Platelet Volume 9.6 fl (7.4-10.4); Monocytes Absolute Auto 0.6 K/mm3 (0.1-0.6); Monocytes Percent Auto 7.5 % (2.6-8.5); Neutrophils Absolute Auto 5.7 K/mm3 (1.3-6.7); Neutrophils Percent Auto 75.3 % (45.5-73.1); Platelet Count Result 259 k/mm3 (150-375); Red Blood Count 4.88 M/mm3 (4.6-6.20); Red Cell Distribution Width 12.8 % (11.5-14.5); White Blood Count 7.6 K/mm3 (4.5-10.0)
[2024-01-01 13:19] LABS: Alanine Aminotransferase 17 U/L (6-50); Albumin Level 4.4 g/dL (3.5-5.1); Alkaline Phosphatase 78 U/L (38-126); Amylase 90 U/L (30-110); Anion Gap 7 mmol/L (4-12); Aspartate Amino Transferase 26 U/L (17-59); Bilirubin,Total 0.5 mg/dL (0.2-1.3); Blood Urea Nitrogen 10 mg/dL (9-20); Calcium 9.2 mg/dL (8.4-10.2); Carbon Dioxide 28 mmol/L (22-30); Chloride 103 mmol/L (98-107); Estimated Glomerular Filt Rate > 60; Glucose 103 mg/dL (65-110); Lipase 101 U/L (23-300); Potassium 4.5 mmol/L (3.4-5.0); Sodium 138 mmol/L (137-145)
== END 2024-01-01 12:25 | disposition home or self-care (01) ==
LOC: ANHIMG 12:26
PROVIDERS: PCP Emergency Medicine; Visit Provider Nurse Practitioner Family
DX: R19.7 Diarrhea, unspecified (principal); R10.9 Unspecified abdominal pain
CPT/HCPCS: 36415; 74177; 80053; 82150; 83690; 85025; Q9967